=== PATIENT | female | born 1930 | race Caucasian/White ===

== ENCOUNTER 2017-08-18 16:19 | Inpatient (IN) | payer MEDICARE ==
[2017-08-18] MEDS ORDERED: NORMAL SALINE 1000 ML 500 ML IV ONE (18:33)
[2017-08-18] MEDS ORDERED: ONDANSETRON HCL INJ/PF 4 MG/2 ML SDV IV ONE (18:34)
--- NOTE | 2017-08-18 18:45 | ER Document Report ---
ED General - General Chief Complaint: Vomiting Stated Complaint: VOMITING Time Seen by Provider: 08/18/17 18:32 Notes: Patient is an 87-year-old female with a past medical history of hypertension, hyperlipidemia, coronary artery disease, who presents with 3 days of persistent vomiting. Patient reports that each time she tries to drink she immediately vomits. She describes the vomitus as the contents of what she is attempted to eat or drink. She has not noted any bilious vomiting. She has an intermittent abdominal cramping that is generalized in nature but does resolve spontaneously. Nothing seems to improve or worsen her symptoms. She denies any history of similar symptoms in the past. She is visiting from [place] and has been unable to follow-up with her primary care doctor regarding today's concerns. She has no prior history of abdominal surgeries in the past. She denies any fever, chest pain, shortness of breath, headache, neck pain, dysuria, or altered mental status. TRAVEL OUTSIDE OF THE [place] IN LAST 30 DAYS: No - Related Data Allergies/Adverse Reactions: Sulfa (Sulfonamide Antibiotics) Allergy (Verified 08/18/17 16:21) Past Medical History - General Information source: Patient - Social History Smoking Status: Never Smoker Chew tobacco use (# tins/day): No Frequency of alcohol use: None Drug Abuse: None Lives with: Family Family History: Reviewed & Not Pertinent Patient has suicidal ideation: No Patient has homicidal ideation: No Renal/ Medical History: Denies: Hx Peritoneal Dialysis Review of Systems - Review of Systems Notes: Constitutional: Negative for fever. HENT: Negative for sore throat. Eyes: Negative for visual changes. Cardiovascular: Negative for chest pain. Respiratory: Negative for shortness of breath. Gastrointestinal: Positive for abdominal pain and vomiting Genitourinary: Negative for dysuria. Musculoskeletal: Negative for back pain. Skin: Negative for rash. Neurological: Negative for headaches, weakness or numbness. 10 point ROS negative except as marked above and in HPI. Physical Exam - Vital signs Vitals: Temp Pulse Resp BP Pulse Ox 97.6 F 69 16 168/56 H 98 08/18/17 17:17 08/18/17 17:17 08/18/17 17:17 08/18/17 17:17 08/18/17 17:17 Interpretation: Hypertensive Notes: PHYSICAL EXAMINATION: GENERAL: Well-appearing, well-nourished and in no acute distress. HEAD: Atraumatic, normocephalic. EYES: Pupils equal round and reactive to light, extraocular movements intact, sclera anicteric, conjunctiva are normal. ENT: nares patent, oropharynx clear without exudates. Moderately dry mucous membranes. NECK: Normal range of motion, supple without lymphadenopathy LUNGS: Breath sounds clear to auscultation bilaterally and equal. No wheezes rales or rhonchi. HEART: Regular rate and rhythm without murmurs ABDOMEN: Soft, mild tenderness to the right upper and right lower quadrants without rebound or guarding, no otherwise localized tenderness, normoactive bowel sounds. No guarding, no rebound. No masses appreciated. EXTREMITIES: Normal range of motion, no pitting or edema. No cyanosis. NEUROLOGICAL: No focal neurological deficits. Moves all extremities spontaneously and on command. PSYCH: Normal mood, normal affect. SKIN: Warm, Dry, normal turgor, no rashes or lesions noted. Course - Re-evaluation Re-evalutation: 08/18/17 18:44 Patient presents with 3 days of persistent vomiting and generalized right-sided abdominal pain. Patient is overall nontoxic in appearance but reports that she has been unable to tolerate even water over the last 48 hours. On abdominal examination she has focal tenderness the right upper and right lower quadrant with some involuntary guarding. Her abdominal exam is otherwise benign. She has no prior abdominal surgical history. Vitals are within normal limits. My primary concern is for an acute surgical pathology given patient's age, persistence of symptoms and localized abdominal pain. Specific concerns including a biliary pathology versus an acute appendicitis. An alternative diagnostic consideration would include an acute bowel obstruction although patient does not have any risk factors for this diagnosis and reports that she continues to pass flatus and have bowel movements. Mesenteric ischemia seems unlikely as patient reports that her abdominal pain is very mild and actually initially reports to me no pain whatsoever and pain is only elicited on abdominal examination. Will proceed with CT the abdomen pelvis with IV contrast , labs, urinalysis, fluid resuscitation and reassessment 08/18/17 21:15 CT the abdomen pelvis is unremarkable. Labs have her show profound hyponatremia at 121. Patient has received 1 L of IV normal saline. Will recheck basic metabolic panel. Will discuss with hospitalist for admission given degree of profound hyponatremia the patient's ongoing difficulty tolerating oral fluids. - Vital Signs Vital signs: Temp Pulse Resp BP Pulse Ox 97.6 F 69 18 173/62 H 100 08/18/17 17:17 08/18/17 17:17 08/19/17 01:31 08/19/17 01:31 08/19/17 01:31 - Laboratory Result Diagrams: 08/18/17 19:19 08/18/17 21:06 Laboratory results interpreted by me: 08/18/17 08/18/17 08/18/17 19:19 19:19 19:19 RDW 15.3 H Seg Neutrophils % 85.0 H Lymphocytes % 8.7 L Sodium 121.1 L Chloride 84 L Glucose 148 H Urine Protein 30 H Urine Urobilinogen 2.0 H Urine Ascorbic Acid 20 H 08/18/17 21:06 RDW Seg Neutrophils % Lymphocytes % Sodium 121.3 L Chloride 85 L Glucose 135 H Urine Protein Urine Urobilinogen Urine Ascorbic Acid - Diagnostic Test Radiology reviewed: Reports reviewed Discharge - Discharge Clinical Impression: Persistent vomiting, Dehydration, Hyponatremia, Right sided abdominal pain Condition: Fair Disposition: ADMITTED OBSERVATION Admitting Provider: Hospitalist - [facility] Admitted: Telemetry
[2017-08-18 19:33] LABS: ABSOLUTE LYMPHOCYTES (AUTO) 0.7 10^3/uL (0.5-4.7); ABSOLUTE MONOCYTES (AUTO) 0.5 10^3/uL (0.1-1.4); BASOPHILS % (AUTO) 0.2 % (0-2); EOSINOPHILS % (AUTO) 0.1 % (0-6); HEMATOCRIT 39.8 % (36.0-47.0); HEMOGLOBIN 13.5 g/dL (12.0-15.5); LYMPHOCYTES % (AUTO) 8.7 % (13-45); MEAN CORPUSCULAR HEMOGLOBIN 28.5 pg (27.0-33.4); MEAN CORPUSCULAR HGB CONC 33.8 g/dL (32.0-36.0); MEAN CORPUSCULAR VOLUME 84 fl (80-97); PLATELET COUNT 328 10^3/uL (150-450); RED BLOOD COUNT 4.73 10^6/uL (3.72-5.28); RED CELL DISTRIBUTION WIDTH 15.3 % (11.5-14.0); TOTAL CELLS COUNTED % (AUTO) 100 %; WHITE BLOOD COUNT 8.2 10^3/uL (4.0-10.5)
[2017-08-18 19:36] LABS: APPEARANCE,URINE CLEAR; BILIRUBIN,URINE NEGATIVE (NEGATIVE); COLOR,URINE YELLOW; GLUCOSE, URINE NEGATIVE (NEGATIVE); KETONES,URINE NEGATIVE (NEGATIVE); LEUKOCYTE ESTERASE,URINE NEGATIVE (NEGATIVE); NITRITE,URINE NEGATIVE (NEGATIVE); PROTEIN,URINE 30 mg/dL (NEGATIVE); URINE SPECIFIC GRAVITY 1.016
[2017-08-18 19:48] LABS: ALANINE AMINOTRANSFERASE 31 U/L (9-52); ALBUMIN 4.1 g/dL (3.5-5.0); ALKALINE PHOSPHATASE 72 U/L (38-126); ANION GAP 9 (5-19); ASPARTATE AMINO TRANSFERASE 20 U/L (14-36); BILIRUBIN,DIRECT 0.1 mg/dL (0.0-0.4); BILIRUBIN,TOTAL 0.6 mg/dL (0.2-1.3); BLOOD UREA NITROGEN 16 mg/dL (7-20); CALCIUM 9.8 mg/dL (8.4-10.2); CARBON DIOXIDE 28 mmol/L (22-30); CHLORIDE 84 mmol/L (98-107); GLUCOSE 148 mg/dL (75-110); LIPASE 65.8 U/L (23-300); POTASSIUM 3.9 mmol/L (3.6-5.0); SODIUM 121.1 mmol/L (137-145); TOTAL PROTEIN 6.5 g/dL (6.3-8.2)
--- NOTE | 2017-08-18 20:44 | RADIOLOGY REPORT (SQ) ---
EXAM DESCRIPTION: CT ABD/PELVIS WITH IV ONLY COMPLETED DATE/TIME: 08/18/2017 8:33 pm REASON FOR STUDY: generalized abdominal pain, vomiting COMPARISON: None. TECHNIQUE: CT scan of the abdomen and pelvis performed using helical scanning technique with dynamic intravenous contrast injection. No oral contrast. Images reviewed with lung, soft tissue, and bone windows. Reconstructed coronal and sagittal MPR images reviewed. Delayed images for evaluation of the urinary system also acquired. All images stored on PACS. All CT scanners at this facility use dose modulation, iterative reconstruction, and/or weight based d osing when appropriate to reduce radiation dose to as low as reasonably achievable (ALARA). [facility]: Dose Right [facility]: CareDose [facility]: Dose Right [facility]: Teradose 4D [facility]: Flux Power CONTRAST TYPE AND DOSE: contrast/concentration: Isovue 370.00 mg/ml; Total Contrast Delivered: 100.0 ml; Total Saline Delivered: 70.0 ml RENAL FUNCTION: GFR > 60. RADIATION DOSE: CT Rad equipment meets quality standard of care and radiation dose reduction techniq ues were employed. CTDIvol: 6.4 - 8.5 mGy. DLP: 690 mGy-cm.. LIMITATIONS: None. FINDINGS: LOWER CHEST: No significant findings. No nodules or infiltrates. LIVER: Normal size. No masses. No dilated ducts. SPLEEN: Normal size. No focal lesions. PANCREAS: No masses. No significant calcifications. No adjacent inflammation or peripancreatic fluid collections. Pancreatic duct not dilated. GALLBLADDER: No identified stones by CT criteria. No inflammatory changes to suggest cholecystitis. ADRENAL GLANDS: No significant masses or asymmetry. RIGHT KIDNEY AND URETER: No solid masses. No significant calcifications. No hydronephrosis or hyd roureter. LEFT KIDNEY AND URETER: No solid masses. No significant calcifications. No hydronephrosis or hydr oureter. AORTA AND VESSELS: Atherosclerotic calcifications. No aneurysm. No dissection. Renal arteries, SMA, celiac without stenosis. RETROPERITONEUM: No retroperitoneal adenopathy, hemorrhage or masses. BOWEL AND PERITONEAL CAVITY: Extensive colonic diverticulosis. No masses or inflammatory changes. No free fluid or peritoneal masses. APPENDIX: Normal. PELVIS: No mass. No free fluid. Normal bladder. ABDOMINAL WALL: No masses. Diastases of the ventral abdominal musculature without significant hernia . BONES: Degenerative change without fracture or suspicious osseous lesion. OTHER: No other significant finding. IMPRESSION: NO ACUTE INFLAMMATORY CHANGE IDENTIFIED WITHIN THE ABDOMEN OR PELVIS. CHRONIC CHANGES DETAILED ABOVE TECHNICAL DOCUMENTATION: JOB ID: [id number] Quality ID # [id number]: Final reports with documentation of one or more dose reduction techniques (e.g., Au tomated exposure control, adjustment of the mA and/or kV according to patient size, use of iterative reconstruction technique) 2010 [employer]- All Rights Reserved
[2017-08-18 21:44] LABS: ANION GAP 6 (5-19); BLOOD UREA NITROGEN 14 mg/dL (7-20); CALCIUM 8.9 mg/dL (8.4-10.2); CARBON DIOXIDE 30 mmol/L (22-30); CHLORIDE 85 mmol/L (98-107); GLUCOSE 135 mg/dL (75-110); POTASSIUM 3.9 mmol/L (3.6-5.0); SODIUM 121.3 mmol/L (137-145)
[2017-08-18] MEDS ORDERED: ACETAMINOPHEN 650 MG SUPP.RECT PR PRN (23:16)
[2017-08-18] MEDS ORDERED: ACETAMINOPHEN 325 MG TABLET PO PRN (23:16)
[2017-08-18] MEDS ORDERED: MAG HYDROX/AL HYDROX/SIMETH SUSP 30 ML UDCUP PO ONE (23:18)
[2017-08-19] MEDS ORDERED: ALPRAZOLAM 0.25 MG TABLET PO ONE (00:15)
[2017-08-19] MEDS: ALPRAZOLAM 0.25 MG TABLET PO SCH (02:27)
[2017-08-19] MEDS: HEPARIN SOD (PORCINE) 5,000 UNIT/ML 1 ML SYRINGE SUBCUT SCH ×3 (05:53→22:34)
[2017-08-19] MEDS: NORMAL SALINE 1000 ML 1,000 ML IV PRN ×2 (05:54→12:16)
--- NOTE | 2017-08-19 06:52 | PDOC H&P ---
History of Present Illness Admission Date/PCP: 08/18/17 23:16 Patient complains of: Nausea and vomiting History of Present Illness: ARIELLE ELLER is a 87 year old female who has a past medical history of coronary artery disease, hypertension, dyslipidemia, anxiety and osteoarthritis. Patient presents with 2-3 days of nausea with vomiting of gastric content only. She is intolerant of p.o. intake denying constipation, chest pain, headache, blurred vision or dizziness. In the emergency room she is found to have a sodium of 120 and referred to the hospitalist for admission. Patient's medication reconciliation reveals daily hydrochlorothiazide and ibuprofen additionally she has recently Received several steroid injections to the hip and knee joint. She also admits to drinking a minimum of two 32 ounce pitchers of water per day. She denies previous episodes or suspect meals Past Medical History Cardiac Medical History: Reports: Atrial Fibrillation, Hyperlipidema, Hypertension GI Medical History: Reports: Gastroesophageal Reflux Disease Psychiatric Medical History: Reports: General Anxiety Disorder Denies: Depression Past Surgical History Past Surgical History: Reports: Cardiac Catheterization - 2 stents Social History Information Source: Patient Lives with: Family Smoking Status: Never Smoker Frequency of Alcohol Use: None Hx Recreational Drug Use: Yes Drugs: None Hx Prescription Drug Abuse: No - Advance Directive Resuscitation Status: Full Code Family History Family History: Hypertension Parental Family History Reviewed: Yes Children Family History Reviewed: Yes Sibling(s) Family History Reviewed.: Yes Medication/Allergy Home Medications: Alprazolam [Xanax 0.25 mg Tablet] 0.125 mg PO QHS 08/18/17 Amlodipine Besylate [Amlodipine Besylate] 5 mg PO DAILY 08/18/17 Aspirin [Aspirin 81 mg Chewable Tablet] 81 mg PO DAILY 08/18/17 Clopidogrel Bisulfate [Plavix 75 mg Tablet] 75 mg PO DAILY 08/18/17 Hydrochlorothiazide 25 mg PO DAILY 08/18/17 Isosorbide Mononitrate [Imdur 60 mg Tablet.er] 60 mg PO DAILY 08/18/17 Lisinopril [Prinivil 10 mg Tablet] 10 mg PO DAILY 08/18/17 Metformin HCl [Glucophage 500 mg Tablet] 500 mg PO BIDACBS 08/18/17 Omeprazole Magnesium [Prilosec Otc] 20 mg PO DAILY 08/18/17 Simvastatin 10 mg PO DAILY 08/18/17 Allergies/Adverse Reactions: Sulfa (Sulfonamide Antibiotics) Allergy (Verified 08/18/17 16:21) Review of Systems Constitutional: ABSENT: chills, fever(s), headache(s), weight gain, weight loss Eyes: ABSENT: visual disturbances Ears: ABSENT: hearing changes Cardiovascular: ABSENT: chest pain, dyspnea on exertion, edema, orthropnea, palpitations Respiratory: ABSENT: cough, hemoptysis Gastrointestinal: ABSENT: abdominal pain, constipation, diarrhea, hematemesis, hematochezia, nausea, vomiting Genitourinary: ABSENT: dysuria, hematuria Musculoskeletal: ABSENT: joint swelling Integumentary: ABSENT: rash, wounds Neurological: ABSENT: abnormal gait, abnormal speech, confusion, dizziness, focal weakness, syncope Psychiatric: ABSENT: anxiety, depression, homidical ideation, suicidal ideation Endocrine: ABSENT: cold intolerance, heat intolerance, polydipsia, polyuria Hematologic/Lymphatic: ABSENT: easy bleeding, easy bruising Physical Exam Vital Signs: Temp Pulse Resp BP Pulse Ox 97.9 F 54 L 15 150/57 H 98 08/19/17 02:02 08/19/17 03:13 08/19/17 02:02 08/19/17 02:02 08/19/17 02:02 Intake & Output 08/17/17 08/18/17 08/19/17 11:59 11:59 11:59 Intake Total 890 Balance 890 Weight 62.4 kg General appearance: PRESENT: no acute distress, well-developed, well-nourished Head exam: PRESENT: atraumatic, normocephalic Eye exam: PRESENT: conjunctiva pink, EOMI, PERRLA. ABSENT: scleral icterus Ear exam: PRESENT: normal external ear exam Mouth exam: PRESENT: moist, tongue midline Neck exam: ABSENT: carotid bruit, JVD, lymphadenopathy, thyromegaly Respiratory exam: PRESENT: clear to auscultation rolando. ABSENT: rales, rhonchi, wheezes Cardiovascular exam: PRESENT: RRR, systolic murmur. ABSENT: diastolic murmur, rubs Pulses: PRESENT: normal dorsalis pedis pul Vascular exam: PRESENT: normal capillary refill GI/Abdominal exam: PRESENT: normal bowel sounds, soft. ABSENT: distended, guarding, mass, organolmegaly, rebound, tenderness Rectal exam: PRESENT: deferred Extremities exam: PRESENT: full ROM. ABSENT: calf tenderness, clubbing, pedal edema Neurological exam: PRESENT: alert, awake, oriented to person, oriented to place , oriented to time, oriented to situation, CN II-XII grossly intact. ABSENT: motor sensory deficit Psychiatric exam: PRESENT: appropriate affect, normal mood. ABSENT: homicidal ideation, suicidal ideation Skin exam: PRESENT: dry, intact, warm. ABSENT: cyanosis, rash Results Impressions: Abdomen/Pelvis CT 08/18/17 18:33 IMPRESSION: NO ACUTE INFLAMMATORY CHANGE IDENTIFIED WITHIN THE ABDOMEN OR PELVIS. CHRONIC CHANGES DETAILED ABOVE Assessment & Plan - Diagnosis (1) Hyponatremia Is this a current diagnosis for this admission?: Yes Plan: Appears euvolemic, suspect polydipsia with hydrochlorothiazide, glucocorticoid and ibuprofen affect. Given history of p.o. intolerance I will obtain serum osmolarity trial 2 L of normal saline, hold ibuprofen and hydrochlorothiazide. Follow-up chemistry and serum and urine osmolarity (2) Persistent vomiting Is this a current diagnosis for this admission?: Yes Plan: Symptomatic management (3) Right sided abdominal pain Is this a current diagnosis for this admission?: Yes Plan: Supportive care CT abdomen is unremarkable. - Time Time Spent: 50 to 70 Minutes - Inpatient Certification Medical Necessity: Need Close Monitoring Due to Risk of Patient Decompensation
[2017-08-19 07:18] LABS: ABSOLUTE LYMPHOCYTES (AUTO) 0.9 10^3/uL (0.5-4.7); ABSOLUTE MONOCYTES (AUTO) 0.6 10^3/uL (0.1-1.4); ABSOLUTE NEUT (AUTO) 5.6 10^3/uL (1.7-8.2); BASOPHILS % (AUTO) 0.3 % (0-2); EOSINOPHILS % (AUTO) 0.5 % (0-6); HEMATOCRIT 35.4 % (36.0-47.0); HEMOGLOBIN 12.4 g/dL (12.0-15.5); LYMPHOCYTES % (AUTO) 12.1 % (13-45); MEAN CORPUSCULAR HEMOGLOBIN 29.1 pg (27.0-33.4); MEAN CORPUSCULAR HGB CONC 34.9 g/dL (32.0-36.0); MEAN CORPUSCULAR VOLUME 83 fl (80-97); MONOCYTES % (AUTO) 8.3 % (3-13); PLATELET COUNT 271 10^3/uL (150-450); RED BLOOD COUNT 4.25 10^6/uL (3.72-5.28); RED CELL DISTRIBUTION WIDTH 15.2 % (11.5-14.0); SEGMENTED NEUTROPHILS % (AUTO) 78.8 % (42-78); TOTAL CELLS COUNTED % (AUTO) 100 %; WHITE BLOOD COUNT 7.1 10^3/uL (4.0-10.5)
[2017-08-19 07:35] LABS: ANION GAP 8 (5-19); BLOOD UREA NITROGEN 12 mg/dL (7-20); CALCIUM 8.4 mg/dL (8.4-10.2); CARBON DIOXIDE 27 mmol/L (22-30); CHLORIDE 91 mmol/L (98-107); GLUCOSE 127 mg/dL (75-110); MAGNESIUM 1.9 mg/dL (1.6-2.3); POTASSIUM 3.5 mmol/L (3.6-5.0); SODIUM 126.1 mmol/L (137-145)
[2017-08-19] MEDS ORDERED: HYDROCHLOROTHIAZIDE 25 MG TABLET PO SCH (10:00)
[2017-08-19] MEDS: ASPIRIN 81 MG TABLET, CHEWABLE PO SCH (11:10)
[2017-08-19] MEDS: SIMVASTATIN 10 MG TABLET PO SCH (11:11)
[2017-08-19] MEDS: LANSOPRAZOLE 15 MG TAB.RAP.DR PO SCH (11:11)
[2017-08-19] MEDS: CLOPIDOGREL BISULFATE 75 MG TABLET PO SCH (11:11)
[2017-08-19] MEDS: ISOSORBIDE MONONITRATE 60 MG TAB.ER.24H PO SCH (11:12)
[2017-08-19] MEDS: AMLODIPINE BESYLATE 5 MG TABLET PO SCH (11:12)
[2017-08-19] MEDS: LISINOPRIL 10 MG TABLET PO SCH (11:13)
[2017-08-19] MEDS ORDERED: NORMAL SALINE 1000 ML 1,000 ML IV PRN (12:53)
[2017-08-19] MEDS ORDERED: POTASSIUM CHLORIDE 20 MEQ/15 ML UDCUP PO ONE (14:00)
--- NOTE | 2017-08-19 17:16 | PDOC DISCHARGE SUMMARY ---
General - Admit/Disc Date/PCP Admission Date/Primary Care Provider: 08/18/17 23:16 Discharge Date: 08/19/17 - Additional Information Resuscitation Status: Full Code Home Medications: Amlodipine Besylate [Amlodipine Besylate] 5 mg PO DAILY 08/18/17 Clopidogrel Bisulfate [Plavix 75 mg Tablet] 75 mg PO DAILY 08/18/17 Hydrochlorothiazide 25 mg PO DAILY 08/18/17 Isosorbide Mononitrate [Imdur 60 mg Tablet.er] 60 mg PO DAILY 08/18/17 Metformin HCl [Glucophage 500 mg Tablet] 500 mg PO Q12 08/18/17 Omeprazole Magnesium [Prilosec Otc] 20 mg PO DAILY 08/18/17 Simvastatin 10 mg PO DAILY 08/18/17 History of Present Illness History of Present Illness: ARIELLE ELLER is a 87 year old female Physical Exam Vital Signs: Temp Pulse Resp BP Pulse Ox 97.9 F 74 18 124/47 L 99 08/19/17 11:42 08/19/17 14:00 08/19/17 11:42 08/19/17 11:42 08/19/17 11:42 Intake & Output 08/18/17 08/19/17 08/20/17 00:59 00:59 00:59 Intake Total 890 Balance 890 Weight 62.4 kg Results Laboratory Results: 08/19/17 06:52 08/19/17 06:52 08/19/17 08/19/17 08/19/17 06:52 06:52 08:48 WBC 7.1 RBC 4.25 Hgb 12.4 Hct 35.4 L MCV 83 MCH 29.1 MCHC 34.9 RDW 15.2 H Plt Count 271 Seg Neutrophils % 78.8 H Lymphocytes % 12.1 L Monocytes % 8.3 Eosinophils % 0.5 Basophils % 0.3 Absolute Neutrophils 5.6 Absolute Lymphocytes 0.9 Absolute Monocytes 0.6 Absolute Eosinophils 0.0 Absolute Basophils 0.0 Sodium 126.1 L Potassium 3.5 L Chloride 91 L Carbon Dioxide 27 Anion Gap 8 BUN 12 Creatinine 0.57 Est GFR ( Amer) > 60 Est GFR (Non-Af Amer) > 60 Glucose 127 H Serum Osmolality 271 L Calcium 8.4 Magnesium 1.9 Impressions: Abdomen/Pelvis CT 08/18/17 18:33 IMPRESSION: NO ACUTE INFLAMMATORY CHANGE IDENTIFIED WITHIN THE ABDOMEN OR PELVIS. CHRONIC CHANGES DETAILED ABOVE
--- NOTE | 2017-08-19 17:22 | PDOC PROGRESS REPORT ---
Subjective Progress Note for:: 08/19/17 Subjective:: Patient is doing a lot better she is tolerating a full diet Sodium is somewhat improved today and increased to 126 Reason For Visit: ABD PAIN,NAUSEA, HYPONATREMIA Physical Exam Vital Signs: Temp Pulse Resp BP Pulse Ox 97.9 F 74 18 124/47 L 99 08/19/17 11:42 08/19/17 14:00 08/19/17 11:42 08/19/17 11:42 08/19/17 11:42 Intake & Output 08/18/17 08/19/17 08/20/17 00:59 00:59 00:59 Intake Total 890 Balance 890 Weight 62.4 kg General appearance: PRESENT: no acute distress, well-developed, well-nourished Head exam: PRESENT: atraumatic, normocephalic Eye exam: PRESENT: conjunctiva pink, EOMI, PERRLA. ABSENT: scleral icterus Ear exam: PRESENT: normal external ear exam Mouth exam: PRESENT: moist, tongue midline Neck exam: ABSENT: carotid bruit, JVD, lymphadenopathy, thyromegaly Respiratory exam: PRESENT: clear to auscultation rolando. ABSENT: rales, rhonchi, wheezes Cardiovascular exam: PRESENT: RRR. ABSENT: diastolic murmur, rubs, systolic murmur Pulses: PRESENT: normal dorsalis pedis pul Vascular exam: PRESENT: normal capillary refill GI/Abdominal exam: PRESENT: normal bowel sounds, soft. ABSENT: distended, guarding, mass, organolmegaly, rebound, tenderness Rectal exam: PRESENT: deferred Extremities exam: PRESENT: full ROM. ABSENT: calf tenderness, clubbing, pedal edema Neurological exam: PRESENT: alert, awake, oriented to place, CN II-XII grossly intact Psychiatric exam: PRESENT: appropriate affect, normal mood Skin exam: PRESENT: dry, intact, warm. ABSENT: cyanosis, rash Results Laboratory Results: 08/19/17 06:52 08/19/17 06:52 08/19/17 08/19/17 08/19/17 06:52 06:52 08:48 WBC 7.1 RBC 4.25 Hgb 12.4 Hct 35.4 L MCV 83 MCH 29.1 MCHC 34.9 RDW 15.2 H Plt Count 271 Seg Neutrophils % 78.8 H Lymphocytes % 12.1 L Monocytes % 8.3 Eosinophils % 0.5 Basophils % 0.3 Absolute Neutrophils 5.6 Absolute Lymphocytes 0.9 Absolute Monocytes 0.6 Absolute Eosinophils 0.0 Absolute Basophils 0.0 Sodium 126.1 L Potassium 3.5 L Chloride 91 L Carbon Dioxide 27 Anion Gap 8 BUN 12 Creatinine 0.57 Est GFR ( Amer) > 60 Est GFR (Non-Af Amer) > 60 Glucose 127 H Serum Osmolality 271 L Calcium 8.4 Magnesium 1.9 Impressions: Abdomen/Pelvis CT 08/18/17 18:33 IMPRESSION: NO ACUTE INFLAMMATORY CHANGE IDENTIFIED WITHIN THE ABDOMEN OR PELVIS. CHRONIC CHANGES DETAILED ABOVE Assessment & Plan - Diagnosis (1) Dehydration Is this a current diagnosis for this admission?: Yes (2) Hyponatremia Is this a current diagnosis for this admission?: Yes (3) Persistent vomiting Is this a current diagnosis for this admission?: Yes Plan: Patient is improved We will continue mild hydration BMP to be repeated in a.m. Patient may be discharged if sodium is improved - Time Time Spent with patient: 25-34 minutes
[2017-08-20 05:37] LABS: ANION GAP 5 (5-19); BLOOD UREA NITROGEN 17 mg/dL (7-20); CALCIUM 8.8 mg/dL (8.4-10.2); CARBON DIOXIDE 24 mmol/L (22-30); CHLORIDE 97 mmol/L (98-107); GLUCOSE 133 mg/dL (75-110); SODIUM 125.7 mmol/L (137-145)
[2017-08-20] MEDS: HEPARIN SOD (PORCINE) 5,000 UNIT/ML 1 ML SYRINGE SUBCUT SCH ×3 (05:40→21:56)
[2017-08-20 05:43] LABS: POTASSIUM 4.5 mmol/L (3.6-5.0)
[2017-08-20] MEDS: ASPIRIN 81 MG TABLET, CHEWABLE PO SCH (11:34)
[2017-08-20] MEDS: LANSOPRAZOLE 15 MG TAB.RAP.DR PO SCH (11:34)
[2017-08-20] MEDS: AMLODIPINE BESYLATE 5 MG TABLET PO SCH (11:35)
[2017-08-20] MEDS: ISOSORBIDE MONONITRATE 60 MG TAB.ER.24H PO SCH (11:35)
[2017-08-20] MEDS: LISINOPRIL 10 MG TABLET PO SCH (11:36)
[2017-08-20] MEDS: CLOPIDOGREL BISULFATE 75 MG TABLET PO SCH (11:36)
[2017-08-20] MEDS: SIMVASTATIN 10 MG TABLET PO SCH (11:36)
[2017-08-20 14:32] LABS: OSMOLALITY,URINE 533 mOsm/kg (300-900)
[2017-08-20 14:45] LABS: URINE SODIUM 6 mmol/L (30-90)
--- NOTE | 2017-08-20 15:57 | PDOC PROGRESS REPORT ---
Subjective Progress Note for:: 08/20/17 Subjective:: The patient is resting in her bed. She has had no further episodes of nausea and vomiting. Unfortunately her sodium level went down. I spent quite some time discussing this with the patient and her daughter. She is going to remain in the hospital for me to obtain appropriate sodium studies. They are in agreement with this plan. She denies fever chills. No chest pain, shortness of breath or heart palpitations. She has had issues with nausea and vomiting dating back quite some time. It seems to happen when her sodium is low. She has never had a GI workup. She has not had a bowel movement yet this morning. No urinary complaints. Reason For Visit: ABD PAIN,NAUSEA, HYPONATREMIA Physical Exam Vital Signs: Temp Pulse Resp BP Pulse Ox 98.7 F 58 L 18 133/44 H 99 08/20/17 11:39 08/20/17 14:00 08/20/17 11:39 08/20/17 11:39 08/20/17 11:39 Intake & Output 08/19/17 08/20/17 08/21/17 06:59 06:59 06:59 Intake Total 890 1358 Balance 890 1358 Weight 62.4 kg 65 kg General appearance: PRESENT: no acute distress, well-developed, well-nourished Head exam: PRESENT: atraumatic, normocephalic Mouth exam: PRESENT: moist, tongue midline Respiratory exam: PRESENT: clear to auscultation rolando. ABSENT: rales, rhonchi, wheezes Cardiovascular exam: PRESENT: RRR. ABSENT: diastolic murmur, rubs, systolic murmur GI/Abdominal exam: PRESENT: normal bowel sounds, soft. ABSENT: distended, guarding, mass, organolmegaly, rebound, tenderness Extremities exam: PRESENT: full ROM. ABSENT: calf tenderness, clubbing, pedal edema Neurological exam: PRESENT: alert, awake, oriented to person, oriented to place , oriented to time, oriented to situation, CN II-XII grossly intact. ABSENT: motor sensory deficit Psychiatric exam: PRESENT: appropriate affect, normal mood. ABSENT: homicidal ideation, suicidal ideation Skin exam: PRESENT: dry, intact, warm. ABSENT: cyanosis, rash Results Laboratory Results: 08/19/17 06:52 08/20/17 04:57 0108/20/17 08/20/17 04:57 04:57 14:02 Sodium 125.7 L Potassium 4.5 D Chloride 97 L Carbon Dioxide 24 Anion Gap 5 BUN 17 Creatinine 0.64 Est GFR ( Amer) > 60 Est GFR (Non-Af Amer) > 60 Glucose 133 H Serum Osmolality 266 L Calcium 8.8 Urine Osmolality 533 Impressions: Abdomen/Pelvis CT 08/18/17 18:33 IMPRESSION: NO ACUTE INFLAMMATORY CHANGE IDENTIFIED WITHIN THE ABDOMEN OR PELVIS. CHRONIC CHANGES DETAILED ABOVE Assessment & Plan - Diagnosis (1) Persistent vomiting Is this a current diagnosis for this admission?: Yes Plan: She has had issues on and off with vomiting for quite some time. She is visiting this area from out of town. I do recommend a GI workup when she gets back home. Her nausea and vomiting have stopped for now. The daughter present in the room thinks it is because of her low sodium. She reportedly has had low sodium in the past but does not know what the levels were. (2) Hyponatremia Is this a current diagnosis for this admission?: Yes Plan: I repeated a serum osmolality as well as urine osmolality and urine sodium. 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 She does admit to drinking at least two 32 ounce jugs of water a day. We will place the patient on a fluid restriction. I would stop her normal saline. Her sodium level did worsen somewhat today. She will have a chemistry panel drawn in the morning (3) Dehydration Is this a current diagnosis for this admission?: Yes Plan: Secondary to nausea and vomiting. Resolved. I am stopping her IV fluids as her sodium level is getting worse. (4) Hypokalemia Is this a current diagnosis for this admission?: Yes Plan: Repleted and resolved - Time Time Spent with patient: 25-34 minutes - Inpatient Certification Medical Necessity: Other - Inpatient hospitalization remains necessary. The patient's sodium level is actually worse today. We are going to stop her fluids and place her on a fluid restriction. I do not feel good sending her out with levels this low. Hopefully we will see some improvement tomorrow.
[2017-08-20] MEDS: ALPRAZOLAM 0.25 MG TABLET PO SCH (21:55)
[2017-08-21] MEDS: HEPARIN SOD (PORCINE) 5,000 UNIT/ML 1 ML SYRINGE SUBCUT SCH (05:14)
[2017-08-21 06:39] LABS: ANION GAP 5 (5-19); BLOOD UREA NITROGEN 19 mg/dL (7-20); CALCIUM 8.7 mg/dL (8.4-10.2); CARBON DIOXIDE 29 mmol/L (22-30); CHLORIDE 99 mmol/L (98-107); GLUCOSE 129 mg/dL (75-110); MAGNESIUM 2.2 mg/dL (1.6-2.3); SODIUM 132.9 mmol/L (137-145)
--- NOTE | 2017-08-21 08:37 | Physician Advisory Note ---
Physician Advisor ProgressNote .: Pursuant to the plan for [facility], I have reviewed the medical record for this patient. Physician Advisor Statement: Nice documentation of clinical reasoning/medical necessity. Appropriate for Inpatient status before today; may change status now even if can go home later today. Please consider documenting, if you agree: 1. "Acute hyponatremia, likely due to ..." Thanks! CK
[2017-08-21] MEDS: AMLODIPINE BESYLATE 5 MG TABLET PO SCH (09:11)
[2017-08-21] MEDS: ASPIRIN 81 MG TABLET, CHEWABLE PO SCH (09:12)
[2017-08-21] MEDS: LISINOPRIL 10 MG TABLET PO SCH (09:13)
[2017-08-21] MEDS: SIMVASTATIN 10 MG TABLET PO SCH (09:13)
[2017-08-21] MEDS: CLOPIDOGREL BISULFATE 75 MG TABLET PO SCH (09:13)
[2017-08-21] MEDS: LANSOPRAZOLE 15 MG TAB.RAP.DR PO SCH (09:13)
[2017-08-21] MEDS: ISOSORBIDE MONONITRATE 60 MG TAB.ER.24H PO SCH (09:13)
--- NOTE | 2017-08-21 10:05 | PDOC DISCHARGE SUMMARY ---
General - Admit/Disc Date/PCP Admission Date/Primary Care Provider: 08/18/17 23:16 She has a primary care provider in [place]. She is traveling to this area Discharge Date: 08/21/17 - Discharge Diagnosis (1) Persistent vomiting Is this a current diagnosis for this admission?: Yes Summary: Transfer the patient has had issues with sporadic nausea and vomiting for quite some time. Her nausea and vomiting has totally resolved. If she continues to have issues I would recommend an outpatient GI workup. (2) Hyponatremia Is this a current diagnosis for this admission?: Yes Summary: Likely multifactorial secondary to hydrochlorothiazide as well as polydipsia. Due to her persistent vomiting the patient was drinking at least 64 ounces of water a day. I have recommended a 1500 mL fluid restriction at the time of discharge. (3) Dehydration Is this a current diagnosis for this admission?: Yes Summary: Resolved. She did receive IV fluids initially however her sodium worsened and these were stopped. (4) Hypokalemia Is this a current diagnosis for this admission?: Yes Summary: Repleted and resolved - Additional Information Resuscitation Status: Full Code Discharge Diet: Regular Discharge Activity: Activity As Tolerated, Balance Activity w/Rest, Slowly Increase Activity Prescriptions: Lisinopril 20 mg PO DAILY #30 tablet Pantoprazole Sodium [Protonix] 40 mg PO DAILY #30 tablet. Home Medications: Clopidogrel Bisulfate [Plavix 75 mg Tablet] 75 mg PO DAILY 08/18/17 Isosorbide Mononitrate [Imdur 60 mg Tablet.er] 60 mg PO DAILY 08/18/17 Metformin HCl [Glucophage 500 mg Tablet] 500 mg PO Q12 08/18/17 Simvastatin 10 mg PO DAILY 08/18/17 Alprazolam [Xanax 0.25 mg Tablet] 0.125 mg PO QHS tablet 08/21/17 Amlodipine Besylate [Norvasc 5 mg Tablet] 5 mg PO DAILY tablet 08/21/17 Aspirin [Aspirin 81 mg Chewable Tablet] 81 mg PO DAILY tab.chew 08/21/17 Lisinopril 20 mg PO DAILY #30 tablet 08/21/17 Pantoprazole Sodium [Protonix] 40 mg PO DAILY #30 tablet. 08/21/17 History of Present Illness History of Present Illness: ARIELLE ELLER is a 87 year old female who presented to the emergency room with weakness, nausea and vomiting. Hospital Course Hospital Course: The patient is an extremely pleasant 87-year-old female with a past medical history significant for coronary artery disease, hypertension, dyslipidemia, anxiety and osteoarthritis. The patient presented to the emergency room with a 3 day history of intractable nausea and vomiting. She was unable to keep down any food. Interestingly the family reports that the patient has had issues with nausea and vomiting dating back quite some time. This intermittently happens and they think that it is related to her sodium level. In any event she was admitted to the hospital and she was started on IV fluid. She was found to have hyponatremia with a sodium level of 121.3 at the time of admission. She was started on normal saline and her sodium improved 126.1 the next day. However the next day her sodium level worsened. Appropriate studies were obtained to include a serum osmolality that was low at 271. Urine osmolality was 533 and her urine sodium level was low at 6. This indicates that the patient possibly has polydipsia as a cause of her hyponatremia. She was placed on a 1200 mL fluid restriction and on the day of discharge her sodium was much improved at 132.9. I am recommending a 1500 mL fluid restriction as an outpatient. She was on hydrochlorothiazide as an outpatient and this is been stopped as well. She is traveling to this area from [place] and she will follow-up with her primary care physician when she gets back home. If she continues to have issues with nausea and vomiting I would recommend an outpatient GI workup. At this point maximum hospital benefit has been reached. The patient will be discharged home today in stable condition. Physical Exam Vital Signs: Temp Pulse Resp BP Pulse Ox 98.4 F 49 L 16 146/54 H 100 08/21/17 07:34 08/21/17 07:34 08/21/17 07:34 08/21/17 07:34 08/21/17 07:34 Intake & Output 08/20/17 08/21/17 08/22/17 06:59 06:59 06:59 Intake Total 1358 1044 Balance 1358 1044 Weight 65 kg 65 kg General appearance: PRESENT: no acute distress, well-developed, well-nourished Head exam: PRESENT: atraumatic, normocephalic Mouth exam: PRESENT: moist, tongue midline Neck exam: ABSENT: carotid bruit, JVD, lymphadenopathy, thyromegaly Respiratory exam: PRESENT: clear to auscultation [place]. ABSENT: rales, rhonchi, wheezes Cardiovascular exam: PRESENT: RRR. ABSENT: diastolic murmur, rubs, systolic murmur GI/Abdominal exam: PRESENT: normal bowel sounds, soft. ABSENT: distended, guarding, mass, organolmegaly, rebound, tenderness Rectal exam: PRESENT: deferred Extremities exam: PRESENT: full ROM. ABSENT: calf tenderness, clubbing, pedal edema Neurological exam: PRESENT: alert, awake, oriented to person, oriented to place , oriented to time, oriented to situation, CN II-XII grossly intact. ABSENT: motor sensory deficit Psychiatric exam: PRESENT: appropriate affect, normal mood. ABSENT: homicidal ideation, suicidal ideation Skin exam: PRESENT: dry, intact, warm. ABSENT: cyanosis, rash Results Laboratory Results: 08/19/17 06:52 08/21/17 05:28 08/20/17 08/21/17 14:02 05:28 Sodium 132.9 L Potassium 5.0 Chloride 99 Carbon Dioxide 29 Anion Gap 5 BUN 19 Creatinine 0.68 Est GFR ( Amer) > 60 Est GFR (Non-Af Amer) > 60 Glucose 129 H Calcium 8.7 Magnesium 2.2 Urine Osmolality 533 Impressions: Abdomen/Pelvis CT 08/18/17 18:33 IMPRESSION: NO ACUTE INFLAMMATORY CHANGE IDENTIFIED WITHIN THE ABDOMEN OR PELVIS. CHRONIC CHANGES DETAILED ABOVE Plan Discharge Plan: The patient will be discharged home today in stable condition. She will follow- up with her primary care physician in [place] when she returns home. Time Spent: Greater than 30 Minutes
[2017-08-21] MEDS ORDERED: INFLUENZA ADLT QUAD (36MOS+) 2017-18 VAC 0.5 ML SYR IM PRN (11:16)
[2017-08-21 11:21] VITALS: BP 112/48
== END 2017-08-21 11:57 | disposition home or self-care (01) | DRG 641 ==
LOC: ER 16:19 → EH 23:16 → 4N 08-19 02:57 → OBSVTOIN 08-21 09:57
PROVIDERS: ADMIT Internal Medicine; ATTEND Internal Medicine
PROC: 3E0234Z Introduction of Serum, Toxoid and Vaccine into Muscle, Percutaneous Approach (ICD-10-PCS; principal; 2017-08-21)
DX: E87.1 Hypo-osmolality and hyponatremia (principal); I10 Essential (primary) hypertension; E87.6 Hypokalemia; E86.0 Dehydration; E78.5 Hyperlipidemia, unspecified; T50.2X5A Adverse effect of carbonic-anhydrase inhibitors, benzothiadiazides and other diuretics, initial encounter; I25.10 Atherosclerotic heart disease of native coronary artery without angina pectoris; M19.90 Unspecified osteoarthritis, unspecified site; I48.91 Unspecified atrial fibrillation; K21.9 Gastro-esophageal reflux disease without esophagitis; F41.1 Generalized anxiety disorder; R63.1 Polydipsia; Z88.2 Allergy status to sulfonamides; Z79.82 Long term (current) use of aspirin; Z82.49 Family history of ischemic heart disease and other diseases of the circulatory system; Z79.899 Other long term (current) drug therapy; Z23 Encounter for immunization
CPT/HCPCS: 36415; 74177; 80048; 80053; 81001; 83690; 83735; 83930; 83935; 84100; 84300; 84484; 85025; 90686; 96361; 96374; 99285; G0378; J1644; J2405; J7030